=== PATIENT | male | born 1950 ===

== ENCOUNTER 2023-11-26 01:56 | Outpatient (CLI) | payer OTHER, SELFPAY ==
--- NOTE | 2023-11-26 | DI.US_ITS ---
APPROVED REPORT Exam: Exercise Treadmill Patient Location: Out-Patient Room/Bed: Stress Nurse: Justine Cutler RN Ordering Provider:ZAC ROULA, Contact Number: [phone] BMI: 26.44 Baseline Rhythm: Sinus Bradycardia Comment: RBBB Indications: Palpitations Medical History Medical History: Adjustment disorder with mixed anxiety and depression, GERD, idiopathic progressive neuropathy Cardiac Medications: Atorvastatin, omeprazole, verdenafil Allergies: Nasal spray, nuts, peanuts, percocet Cardiac Risk Factors: Family hx, HLD Previous Cardiac Procedures: None Pretest Chest Pain Characteristics: None Exercise History: Physically active Physical Disabilities: Neuropathy to bilateral feet Lung Sounds: Clear to auscultation Heart Sounds: Bradycardia Stress Test Details Test: Exercise stress testing was performed using a Antwan protocol. Rest Stress HR Resting HR Supine: 46 bpm Max Heart Rate (APMHR): 145 bpm Resting HR Standin bpm Target HR (85% APMHR): 123 bpm Max HR Achieved: 138 bpm % of APMHR: 95 Recovery HR: 82 bpm HR response to stress: Normal HR response to stress BP Resting BP Supine: 136/72 mmHg Resting BP Standin/80 mmHg Max BP: 174/56 mmHg Recovery BP: 144/62 mmHg BP response to stress: Normal blood pressure response to stress. ECG Resting ECG: Sinus Bradycardia, RBBB Ectopy: Occasional PVC's, rare PAC's Stress ECG: Sinus tachycardia, RBBB ST Change: No significant ST segment changes noted Arrhythmia: Occasional PVC's Recovery ECG: Sinus Rhythm, RBBB Recovery ST Change: No significant ST segment changes noted Recovery Arrhythmia: Occasional PVC's, trigeminy Clinical Reason for Termination: Fatigue Stress Symptoms: General Fatigue, neuropathy bilateral feet Exercise duration: 06 min58 sec Highest Stage Reached: Stage 2: 2.5 mph at 12% grade. Exercise capacity: 8.55 METs Angina Score: None Antunez Treadmill Score: 5.8 Rate Pressure Product: [id number] Stress ECG Conclusion 1. Resting electrocardiogram shows a right bundle branch block 2. Patient exercised on the Antwan protocol and completed workload of 8.55 METS 3. Normal heart rate and blood pressure response to exercise. Patient achieved 95% of predicted hear t rate for age 4. There was no electrocardiographic evidence of myocardial ischemia 5. There were occasional PVCs 6. There was no echocardiographic evidence of myocardial ischemia Antunez Treadmill Score is 5.8 which is Low risk. Stress Test Summary STAGE Time (mins) Speed (mph) Grade (%) HR BP SpO2 SYMPTOMS METS Supine 46 136/72 98% Standing 55 164/80 1 3 1.7 10 98 168/74 Mod fatigue, mod SOB, mod bilat foot pain r/t neuropathy 4.5 2 6 2.5 12 138 7 1 min recovery 90 174/56 3 min recovery 82 168/58 6 min recovery 90 144/62 99% All symptoms resolved
== END 2023-11-26 02:16 ==
PROVIDERS: Visit Provider Internal Medicine
DX: R00.2 Palpitations (principal)
CPT/HCPCS: 93306; 93350; 93017